=== PATIENT | male | born 1980 | race Two or more races ===

== ENCOUNTER 2017-05-08 09:47 | Emergency (ER) | payer SELFPAY ==
[~2017-05-08] VITALS: Ht 175.3 cm; Wt 117.7 kg
[2017-05-08 10:02] VITALS: BP 121/72; Ht 175.3 cm; Wt 117.7 kg
== END 2017-05-08 11:07 | disposition home or self-care (01) ==
LOC: ED 09:47
DX: S83.411A Sprain of medial collateral ligament of right knee, initial encounter (principal); W50.0XXA Accidental hit or strike by another person, initial encounter; Y93.72 Activity, wrestling; Y99.8 Other external cause status; Y92.89 Other specified places as the place of occurrence of the external cause